=== PATIENT | male | born 1955 | race Caucasian/White ===

== ENCOUNTER 2021-10-23 12:02 | Emergency (ER) | payer MEDICARE, SELFPAY ==
[2021-10-23 12:16] VITALS: BP 154/89; PULSE 89; RESP 16; TEMP 37.1; O2SAT 98
--- NOTE | 2021-10-23 13:06 | ED.SKABFB ---
HPI - Skin/Abscess/Foreign Bdy General Chief complaint: Skin/Abscess/Foreign Body Stated complaint: shingles Time Seen by Provider: 10/23/21 12:35 Source: patient, RN notes reviewed and old records reviewed Mode of arrival: ambulatory Limitations: no limitations History of Present Illness HPI narrative: 66-year-old male who presents to [facility] care with complaints of red blistery rash to the upper abdomen region from anterior right chest to posterior right back that presented itself yesterday. Patient states he was having tingling sensation along that area starting on Friday but no rash till yesterday. Patient states he states a burning type of discomfort. Has not had shingles vaccination MD complaint: other (Shingles) Onset (ago): day(s) (rash 1 day) Severity scale (1-10): 5 Treatments prior to arrival: other (lidocaine and aspirin) Related Data Allergies Allergy/AdvReac Type Severity Reaction Status Date / Time codeine Allergy Headache Verified 10/23/21 12:25 Review of Systems Review of Systems: ONSTITUTIONAL: Denies fever, chills, or sweats. EYES: Denies visual changes, redness, or discharge. ENT: Denies rhinorrhea, congestion, sore throat, or otalgia. CARDIOVASCULAR: Denies chest pain, palpitations, or edema. RESPIRATORY: Denies cough or dyspnea. GASTROINTESTINAL: Denies abdominal pain, nausea, vomiting, or diarrhea. GENITOURINARY: Denies dysuria or hematuria. SKIN: Positive for red rash right upper abdomen radiating to right back with itching and burning sensation grouped. MUSCULOSKELETAL: Denies back pain, joint pain, positive pain along rash on upper abdomen and back NEUROLOGIC: Denies headache, numbness, or weakness. PSYCHIATRIC: Denies anxiety or depression. All systems reviewed & are unremarkable except as noted in HPI and below PMFSH Past Medical History Medical History (Updated 10/26/21 @ 12:37 by Ble Lentz NP) Fracture, clavicle Surgical History Surgical History (Updated 10/23/21 @ 13:16 by Bel Lentz NP) S/P rotator cuff surgery Social History Social History (Updated 10/26/21 @ 12:40 by Bel Lentz NP) Smoking status: Never smoker Alcohol intake: current Alcohol use details: social Substance use: never Living arrangements: with family Gender identity (if verbalized by the patient): Male Comments At time of signature, agree with nursing past medical, surgical, social and family history. There is no relevant family history pertinent to the presenting complaint Exam Narrative: GENERAL: Well-appearing, well-nourished, and in no acute distress. HEAD: Normocephalic, atraumatic. EYES: PERRLA and EOMI. ENT: Nares clear, no rhinorrhea or epistaxis. Mucous membranes moist.TM's ormal with good light reflex, throat pink no lesions or swelling NECK: Supple. no lymphadenopathy CHEST: Clear to auscultation. No respiratory distress.SAO2 98% on room air HEART: Regular rate and rhythm. No murmur heard. Normal peripheral pulses. ABDOMEN: Soft, nontender, nondistended, normal active bowel sounds. EXTREMITIES: Normal range of motion. No edema. SKIN: Warm, dry, red painful rash to right side of upper abdomen radiating to right back NEURO: No focal deficits. Alert and oriented x3. Course Course Level of Care: Express Care Visit Vital Signs Vital signs: Vital Signs Temperature 37.1 C 10/23/21 12:16 Pulse Rate 89 10/23/21 12:16 Respiratory Rate 16 10/23/21 12:16 Blood Pressure 154/89 H 10/23/21 12:16 Pulse Oximetry 98 10/23/21 12:16 Oxygen Delivery Room Air 10/23/21 12:16 Temperature 37.1 C 10/23/21 12:16 Pulse Rate 89 10/23/21 12:16 Respiratory Rate 16 10/23/21 12:16 Blood Pressure 154/89 H 10/23/21 12:16 Pulse Oximetry 98 10/23/21 12:16 Oxygen Delivery Room Air 10/23/21 12:16 MDM - Skin/Abscess/Foreign Bdy Differential Diagnosis Differential diagnosis: Likely abscess of skin or subcutaneous tissue, urticaria, herpes zoste
== END 2021-10-23 13:17 | disposition home or self-care (01) ==
PROVIDERS: Emergency Provider Registered Nurse
DX: B02.9 Zoster without complications (principal)
CPT/HCPCS: 99213; G0463

== ENCOUNTER 2023-04-09 08:16 | Outpatient (CLI) | payer MEDICARE, SELFPAY ==
[2023-04-09 19:17] LABS: Anion Gap 7 mmol/L (8-16); Blood Urea Nitrogen 18 mg/dL (9-20); Calcium 9.7 mg/dL (8.4-10.2); Carbon Dioxide 27 mmol/L (22-30); Chloride 105 mmol/L (98-107); Estimated Glomerular Filt Rate > 60; Glucose 105 mg/dL (65-110); Potassium 4.5 mmol/L (3.4-5.0); Sodium 139 mmol/L (137-145)
[2023-04-09 19:47] LABS: Prostate Specific Antigen 0.5 ng/mL (< OR = 4.0)
== END 2023-04-09 08:17 | disposition home or self-care (01) ==
PROVIDERS: PCP Family Medicine; Visit Provider Nurse Practitioner Adult Health
DX: Z12.5 Encounter for screening for malignant neoplasm of prostate (principal); Z82.49 Family history of ischemic heart disease and other diseases of the circulatory system
CPT/HCPCS: 36415; 80048; 84153; G0103

== ENCOUNTER 2024-08-04 08:06 | Outpatient (CLI) | payer MEDICARE, SELFPAY ==
--- OUTSIDE RECORDS SUMMARY | 2024-08-04 08:13 | XMS_ITS | Referral Summary ---
Author Organization [facility] Address [address] [place] [address] Phone Care Team Providers Care Per Diem Clerk Name Role Phone Berto Negron MD Primary Care Provider [phone] Allergies Active Allergy Reactions Criticality Noted Date Comments Codeine Medications No known medications Active Problems Problem Noted Date Diagnosed Date Encounter for screening colonoscopy 10/10/2021 Overview (10/10/2021): Added automatically from request for surgery [id number] Bilateral hearing loss 05/04/2012 Overview (05/24/2016): Hearing loss in left ear Resolved Problems Problem Noted Date Diagnosed Date Resolved Date Complete tear of rotator cuff 08/21/2010 04/09/2019 Arthralgia of shoulder 07/31/201004/09 Immunizations Immunization Administration Dates Next Due Influenza, Quadrivalent, Spl it, Preservative Free, Intramuscular 04/09/2019,11/20/2016 Influenza, Unspecified 11/17/2020 Pneumococcal Conjugate Pcv20 09/20/2021 Pneumococcal Polysaccharide PPV23 09/14/2020 Social History Tobacco Use Types Packs/Day Years Used Date Smoking Tobacco: Never Smokeless Tobacco: Never Alcohol Use Standard Drinks/Week Comments Yes 0 (1 standard drink = 0.6 oz pur e alcohol) PHQ-2 Answer Date Recorded PHQ-2 Total Score (If total score is 3 or more points, staff should administer the PHQ-9) 0 09/20/2021 Personal Safety Answer Date Recorded Getting School Help Needed Denies 02/15 Sex and Gender Information Value Date Recorded Sex Assigned at Not on file Legal Sex 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 Gender Identity Not on file Sexual Orientation Not on file Last Filed Vital Signs Vital Sign Reading Time Taken Comments Blood Pressure 114/83 03/01/2022 9:13 AM NATIONAL SALES MANAGER Pulse 69 03/01/2022 9:13 AM NATIONAL SALES MANAGER Temperature 36.8 C (98.3 F) 03/01/2022 9:13 AM NATIONAL SALES MANAGER Respiratory Rate 18 03/01/2022 9:13 AM NATIONAL SALES MANAGER Oxygen Saturation 98% 03/01/2022 9:13 AM NATIONAL SALES MANAGER Inhaled Oxygen Concentration - - Weight 76.2 kg (168 lb) 03/01/2022 7:13 AM NATIONAL SALES MANAGER Height 172.7 cm (5' 8) 03/01/2022 7:13 AM NATIONAL SALES MANAGER Body Mass Index 25.54 03/01/2022 7:13 AM NATIONAL SALES MANAGER Plan of Treatment Not on file Procedures Procedure Name Priority Date/Time Associated Diagnosis Comments COLONOSCOPY 03/01/2022 7:14 AM NATIONAL SALES MANAGER HEPATITIS C ANTIBODY Routine 09/18/2020 10:27 AM CDT Need for hepatitis C screening test PSA SCREEN Routine 09/18/2020 10:27 AM CDT Annual physical exam from Last 3 Months or Most Recently Relevant to Health Maintenance Results * COLONOSCOPY (03/01/2022 7:14 AM NATIONAL SALES MANAGER) Anatomical Region Laterality Modality Other Narrative Procedure Note Leonardo Salas MD - 03/01/2022 7:14 AM CST [facility] Patient Name: Tristan Barrera Procedure Date: 03/01/2022 7:14 AM Date of : 1955 Admit Type: Outpatient Age: 66 Gender: Male Attending MD: Leonardo Salas M.D. Room: [facility] ENDOSCOPY ROOM 1 Note Status: Finalized Patient Profile: This is a 66 year old male. No family history ofcolon cancer. Procedure: Colonoscopy Indications: Screening for colorectal malignant neoplasm, Last colonoscopy: November 2011 Referring MD: Sidney Falk M.D. Providers: Leonardo Salas M.D. Impression: - Three 5 to 10 mm polyps in the ascending colon, removed with a cold snare. Resected andretrieved. - Diverticulosis in the sigmoid colon, in the transverse colon and in the ascending colon. - One 5 mm polyp in the sigmoid colon, removed witha cold snare. Resected and retrieved. - Internal hemorrhoids. Recommendation: - Await pathology results. - Repeat colonoscopy in 3 years for screeningpurposes. Medicines: Monitored Anesthesia Care Complications: No immediate complications. Estimated Blood Loss: Estimated blood loss: none. Procedure: Pre-Anesthesia Assessment: - Prior to the procedure, a History and Physicalwas performed, and patient medications and allergieswere reviewed. The patient's tolerance of previous anesthesia was also reviewed. The risks andbenefits of the procedure and the sedation options and risks were discussed with the patient. All questions were answered, and informed consent was obtained. Prior Anticoagulants: The patient has taken noanticoagulant or antiplatelet agents. ASA Grade Assessment: II -A patient with mild systemic disease. After reviewing the risks and benefits, the patient was deemed in satisfactory condition to undergo the procedure. The benefits, risks and alternatives of theprocedure and sedation were discussed and informed consentwas obtained. All questions were answered. Please referto the signed informed consent document in the medical record. The scope was passed under direct vision.The Pediatric Colonoscope PCF-H190L [id number] was introduced through the anus and advanced to the the cecum, identified by appendiceal orifice andileocecal valve. The bowel preparation used was Miralax and bisacodyl tablets via split dose instruction. The quality of the bowel preparation was good. Bowelprep was administered using a split dose. Findings: The perianal and digital rectal examinations were normal. The cecum appeared normal. Three sessile polyps were found in the ascending colon. The polypswere 5 to 10 mm in size. These polyps were removed with a cold snare. Resection and retrieval were complete. Multiple medium-mouthed diverticula were found in the sigmoid colon, transverse colon and ascending colon. A 5 mm polyp was found in the sigmoid colon. The polyp was sessile.The polyp was removed with a cold snare. Resection and retrieval were complete. Internal hemorrhoids were found during retroflexion. The hemorrhoids were medium-sized. Electronically signed by Leonardo Salas M.D. Leonardo Salas M.D. 03/01/2022 8:50:07 AM Number of Addenda: 0 Note Initiated On: 03/01/2022 7:14 AM Procedure Code(s): --- Professional --- 22551, Colonoscopy, flexible; with removal of tumor(s), polyp(s), or other lesion(s) by snare technique Diagnosis Code(s): --- Professional --- Z12.11, Encounter for screening for malignant neoplasm of colon K64.8, Other hemorrhoids D12.2, Benign neoplasm of ascending colon D12.5, Benign neoplasm of sigmoid colon K57.30, Diverticulosis of large intestine without perforation orabscess without bleeding CPT copyright 2020 [employer]. All rights reserved. The codes documented in this report are preliminary and upon inpatient coder reviewmay be revised to meet current compliance requirements. Recognized by the [employer] for promoting quality in endoscopy Leonardo Salas MD ENDOSCOPY PROCEDURES Final Result * PSA screen (09/18/2020 10:27 AM CDT) PSA-Total 0.40 <=5.40 ng/mL [facility] Comment: Interpretive Data AGE SEX REFERENCE INTERVAL 0 minutes-150 years Female None 0 minutes-49 years Male None 50-59 years Male 0-3.90 60-69 years Male 0-5.40 70-79 years Male 0-6.20 80-150 years Male 0-6.20 Current interpretive data last revised 2018. Testing performed by: [address], [address] Blood specimen (specimen) 09/18/2020 10:27 AM CDT 09/18/2020 2:28 PM CDT Sidney Falk MD LAB BLOOD ORDERABLES Final Result [facility] ([place] 1 [facility] Department [place] [address] * Hepatitis C antibody (09/18/2020 10:27 AM CDT) Hep C Ab Nonreactive Nonreactive [facility] Comment: Interpretive Data Nonreactive: Antibodies to HCV not detected. Does NOT exclude the possibility of recent exposure to HCV. Equivocal: Equivocal for HCV antibodies. Supplemental molecular testing will be automatically performed to determine infection status in accordance with current CDC screening recommendations. Reactive: Positive for HCV antibodies. This may represent current or past HCV infection. Supplemental molecular testing will be automatically performed to determine current infection status in accordance with current CDC screening recommendations. Interpretive data was last revised on 2019. Testing performed by: [address] [address] Blood specimen (specimen) 09/18/2020 10:27 AM CDT 09/18/2020 2:28 PM CDT us Sidney Falk MD LAB MICROBIOLOGY - GE NERAL ORDERABLES Final Result [facility] ([place]) 1 [facility] [place] [place] [address] from Last 3 Months or Most Recently Relevant to Health Maintenance Insurance [facility] ADVANTRA [facility] CHOICE PLUS [facility] HMO/PPO Address: [address] [address] [place] [address] AETNA MEDICARE AETNA [facility] ADVANTRA * Guarantor: [facility]-,RESEARCH Account Type Relation to Patient Date of Phone [place] [address] Advance Directives For more information, please contact: [phone] * Full Code (Latest Code Status on File) Date Activated Date Inactivated Comments 03/01/2022 7:16 AM 03/01/2022 1:29 PM * Full Code Date Activated Date Inactivated Comments 03/01/2022 7:16 AM 03/01/2022 7:16 AM Care Teams Per Diem Clerk Relationship Specialty Start Date End Date Berto Negron MD [address] [place] [address] PCP - General Family Practice 04/01/22
--- OUTSIDE RECORDS SUMMARY | 2024-08-04 08:13 | XMS_ITS | Clinical Summary ---
Author Organization [facility] Address [address] [place] [address] Care Team Providers Care Purchasing Coordinator Name Role Phone Unavailable Primary Care Provider Unavailabl e Source Comments [facility],non-owned Affiliates and Associated Physician Practices is amultiple site organization consisting of ambulatory clinics and hospital sitesin [place], [place] and [place]. This disclosure is being madepursuant to the Care Everywhere program and may not contain all information available regarding this patient. Last updated 17.[facility] Allergies No known active allergies Social History Tobacco Use Types Packs/Day Years Used Date Smoking Tobacco: Never Assessed Sex and Gender Information Value Date Recorded Sex Assigned at Not on file Legal Sex Male 6:49 AM CDT Gender Identity Not on file Sexual Orientation Not on file Plan of Treatment Health Maintenance Due Date Last Done Comments COLOGUARD (AGES 45-75) - COL ON CA SCREENING 1955 COLON MONITORING 1955 COLONOSCOPY - COLON CA SCREENING 1955 CT COLONOGRAPHY - COLON CA SCREENING 1955 Colorectal Cancer Screening 1955 FIT - COLON CA SCREENING 1955 FLEX SIG - COLON CA SCREENING 1955 LIPID TESTING 1955 HEPATITIS C SCREENING 04/10/1973 DTAP/TDAP/TD VACCINES (1 - Tdap) 1974 PNEUMOCOCCAL VACCINE 50+ (1 of 1 - PCV) 2005 ZOSTER VACCINE (1 of 2) 2005 COVID-19 VACCINE (1 - 2023-2 5 season) 2023 DEPRESSION SCREENING 02/18/2024 INFLUENZA VACCINE (Season Ended) 2024 Respiratory Syncytial Virus (RSV) Vaccine Pt: or over 60 yrs (1 - 1-dose 75+ series) 2030 HEPATITIS B VACCINE Aged Out No longe r eligible based on patient's age to complete this topic HIB VACCINE Aged Out No longer eligi ble based on patient's age to complete this topic HPV VACCINE Aged Out No longer eligi ble based on patient's age to complete this topic MENINGOCOCCAL (Group B) VACC INE SHARED DECISION-MAKING Aged Out No longer eligibl e based on patient's age to complete this topic MENINGOCOCCAL GROUPS A/C/Y/W VACCINE Aged Out No longer eligible b ased on patient's age to complete this topic
--- OUTSIDE RECORDS SUMMARY | 2024-08-04 08:13 | XMS_ITS | Clinical Summary ---
Author Organization [facility] Address [address] [place] [address] Phone Care Team Providers Care Knit Goods Mender Name Role Phone Berto Negron MD Primary Care Provider [phone] Allergies Active Allergy Reactions Criticality Noted Date Comments Codeine Medications No known medications Active Problems Problem Noted Date Diagnosed Date Encounter for screening colonoscopy 10/10/2021 Overview (10/10/2021): Added automatically from request for surgery [id number] Bilateral hearing loss 05/04/2012 Overview (05/24/2016): Hearing loss in left ear Resolved Problems Problem Noted Date Diagnosed Date Resolved Date Complete tear of rotator cuff 08/21/2010 04/09/2019 Arthralgia of shoulder 07/31/201004/09 Immunizations Immunization Administration Dates Next Due Influenza, Quadrivalent, Spl it, Preservative Free, Intramuscular 04/09/2019,11/20/2016 Influenza, Unspecified 11/17/2020 Pneumococcal Conjugate Pcv20 09/20/2021 Pneumococcal Polysaccharide PPV23 09/14/2020 Surgical History Surgery Date Site/Laterality Comments OTHER SURGICAL HISTORY 02/17/2010 - 02/16/2011 R shoulder injury 2011: Rotator cuff repair ROTATOR CUFF REPAIR 08/13/2010 Right Rotator cuff repair COLONOSCOPY 11/18/2011 - 12/18/2011 Medical History Medical History Date Comments Hx Other Medical R shoulder inju ry 2010 Allergic Headache x 3 months Complete tear of rotator cuff 08/21/2010 Arthralgia of shoulder 07/31/2010 Family History Medical History Relation Name Comments Cancer Father Other Father Alive and well; Coronary artery disease Maternal Grandfather Coronary artery disease; Coronary artery disease Mother Migue nary artery disease; Heart disease Mother Heart disease; Other Mother Alive and well; Other Other 1 No family histo ry of Cancer; Other Other 2 No family histo ry of Stroke; Other Other 3 No family histo ry of Diabetes mellitus; Cancer Other 4 Family history of Cancer; Heart disease Other 5 Family history of Heart disease; Relation Name Status Comments Father Maternal Grandfather Mother Alive Other 1 Other 2 Other 3 Other 4 Other 5 Social History Tobacco Use Types Packs/Day Years [...] on file 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 Gender Identity Not on file Sexual Orientation Not on file Obstetrics History Last Filed Vital Signs Vital Sign Reading Time Taken Comments Blood Pressure 114/83 03/01/2022 9:13 AM WIND TURBINE INSTALLER Pulse 69 03/01/2022 9:13 AM WIND TURBINE INSTALLER Temperature 36.8 C (98.3 F) 03/01/2022 9:13 AM WIND TURBINE INSTALLER Respiratory Rate 18 03/01/2022 9:13 AM WIND TURBINE INSTALLER Oxygen Saturation 98% 03/01/2022 9:13 AM WIND TURBINE INSTALLER Inhaled Oxygen Concentration - - Weight 76.2 kg (168 lb) 03/01/2022 7:13 AM WIND TURBINE INSTALLER Height 172.7 cm (5' 8) 03/01/2022 7:13 AM WIND TURBINE INSTALLER Body Mass Index 25.54 03/01/2022 7:13 AM WIND TURBINE INSTALLER Plan of Treatment Health Maintenance Due Date Last Done Comments DTaP/Tdap/Td Vaccine (1 - Tdap) 1966 Hepatitis B Screening 1973 Zoster Vaccine (1 of 2) 2005 Abdominal Aortic Aneurysm (A AA) Screen 2020 Prostate Cancer Screening-PSA 09/18/2022 09/18/2020, 12/09/2016 Depression Screening 09/20/2022 09/20/2021, 09/14/2020, 04/09/2019, Additional history exists Well Visit 65+ 09/20/2022 09/20/2021, 08/18, 11/20/2016 Fall Risk Assessment 03/01/2023 03/01/2022, 09/20/2021, 09/14/2020, Additional history exists Influenza Vaccine (Season Ended) 2024 11/17/2020, 04/09/2019, 11/20/2016 Colon Cancer Screening-Colonoscopy 03/01/2025 03/01/2022, 12/13/2011, 12/13/2011 Hepatitis C Screening Completed 09/18/2020 Pneumococcal vaccine 65+ Completed 09/20/2021, 08/18 Colon Cancer Screening-CT Colonography Discontinued 03/01/2022, 12/13/2011, 12/13/2011 Colon Cancer Screening-DNA Stool Discontinued 03/01/2022, 12/13/2011, 12/13/2011 Colon Cancer Screening-FIT Discontinued 03/01, 12/13/2011, 12/13/2011 Colon Cancer Screening-Sigmoidoscopy Discontinued 03/01/2022, 12/13/2011, 12/13/2011 Procedures Procedure Name Priority Date/Time Associated Diagnosis Comments COLONOSCOPY 03/01/2022 7:14 AM WIND TURBINE INSTALLER HEPATITIS C ANTIBODY Routine 09/18/2020 10:27 AM CDT Need for hepatitis C screening test PSA SCREEN Routine 09/18/2020 10:27 AM CDT Annual physical exam from Last 3 Months or Most Recently Relevant to Health Maintenance Results * COLONOSCOPY (03/01/2022 7:14 AM WIND TURBINE INSTALLER) Anatomical Region Laterality Modality Other Narrative Procedure Note Leonardo Salas MD - 03/01/2022 7:14 AM CST [facility] Patient Name: Tristan Barrera Procedure Date: 03/01/2022 7:14 AM Date of : 1955 Admit Type: Outpatient Age: 66 Gender: Male Attending MD: Leonardo Salas M.D. Room: [facility] END[facility]COPY ROOM 1 Note Status: Finalized Patient [...] passed under direct vision.The Pediatric Colonoscope PCF-H190L [id number] was introduced through the anus and advanced [...] 7:14 AM Procedure Code(s): --- Professional --- 29193, Colonoscopy, flexible; with removal of tumor(s), polyp(s), or other lesion(s) by snare technique Diagnosis Code(s): --- Professional --- Z12.11, Encounter for screening for malignant neoplasm of colon K64.8, Other hemorrhoids D12.2, Benign neoplasm of ascending colon D12.5, Benign neoplasm of sigmoid colon K57.30, Diverticulosis of large intestine without perforation orabscess without bleeding CPT copyright 2020 [employer]. All rights reserved. The codes documented in this report are preliminary and upon casting room operator reviewmay be revised to meet current compliance requirements. Recognized by the [employer] for promoting quality in endoscopy Leonardo Salas MD ENDOSCOPY PROCEDURES Final Result * PSA screen (09/18/2020 10:27 AM CDT) PSA-Total 0.40 <=5.40 ng/mL [facility] ([place]) Comment: Interpretive Data AGE SEX REFERENCE INTERVAL 0 minutes-150 years Female None 0 minutes-49 years Male None 50-59 years Male 0-3.90 60-69 years Male 0-5.40 70-79 years Male 0-6.20 80-150 years Male 0-6.20 Current interpretive data last revised 2018. Testing performed by: [facility], [address] [place] [address]., [id number] Blood specimen (specimen) 09/18/2020 10:27 AM CDT 09/18/2020 2:28 PM CDT Sidney Falk MD LAB BLOOD ORDERABLES Final Result [facility] ([place]) 1 [facility] [place] [address] * Hepatitis C antibody (09/18/2020 10:27 AM CDT) Hep C Ab Nonreactive Nonreactive [facility] ([place]) Comment: Interpretive Data Nonreactive: Antibodies to HCV [...] last revised on 2019. Testing performed by: [facility], [address] [place] [address], [place]., [address] Blood specimen (specimen) 09/18/2020 10:27 AM CDT 09/18/2020 2:28 PM CDT Sidney Falk MD LAB MICROBIOLOGY - NERKS ORDERABLES Final Result [facility] ([place]) 1 [facility] Department [place] [address] from Last 3 Months or Most Recently Relevant to Health Maintenance Insurance [facility] ADVANTRA [facility] CHOICE PLUS [facility] * Guarantor: [facility]-,RESEARCH Account Type Relation to Patient Date of [place] [address] Advance Directives For more information, please contact: [phone] * Full Code (Latest Code Status on File) Date Activated Date Inactivated Comments 03/01/2022 7:16 AM 03/01/2022 1:29 PM * Full Code Date Activated Date Inactivated Comments 03/01/2022 7:16 AM 03/01/2022 7:16 AM Care Teams Knit Goods Mender Relationship Specialty Start Date End Date Berto Negron MD [address] [place] [address] PCP - General Family Practice 04/01/22
[2024-08-04 19:10] LABS: Alanine Aminotransferase 30 U/L (6-50); Albumin Level 4.4 g/dL (3.5-5.1); Alkaline Phosphatase 70 U/L (38-126); Anion Gap 6 mmol/L (4-12); Aspartate Amino Transferase 71 U/L (17-59); Bilirubin,Total 0.9 mg/dL (0.2-1.3); Blood Urea Nitrogen 19 mg/dL (9-20); Calcium 9.2 mg/dL (8.4-10.2); Carbon Dioxide 27 mmol/L (22-30); Chloride 104 mmol/L (98-107); Estimated Glomerular Filt Rate > 60; Glucose 103 mg/dL (65-110); Potassium 4.5 mmol/L (3.4-5.0); Sodium 137 mmol/L (137-145); Total Protein 7.6 g/dL (6.3-8.2)
[2024-08-04 19:38] LABS: Prostate Specific Antigen 0.5 ng/mL (< OR = 4.0)
== END 2024-08-04 08:07 | disposition home or self-care (01) ==
PROVIDERS: PCP Nurse Practitioner Adult Health; Visit Provider Nurse Practitioner Adult Health
DX: Z12.5 Encounter for screening for malignant neoplasm of prostate (principal); Z82.49 Family history of ischemic heart disease and other diseases of the circulatory system
CPT/HCPCS: 36415; 80053; 84153; G0103

== ENCOUNTER 2024-10-31 02:00 | Emergency (ER) | payer MEDICARE, SELFPAY ==
[2024-10-31] VITALS (18 sets, daily range): BP systolic 130–145; BP diastolic 80–105; PULSE 59–91; RESP 14–25; TEMP 36.5–36.6; O2SAT 92–100
--- NOTE | ~2024-10-31 | CT_ITS ---
Tristan Barrera Jr. EXAMINATION: CT abdomen pelvis w con COMPARISON: None HISTORY: RLQ pain TECHNIQUE: Axial images were obtained through the abdomen, pelvis post administration of IV contrast. Oral contrast was also administered. Coronal reconstruction images were obtained from the axial views. CT scan performed using dose optimization techniques including the following automated exposure control; adjustment of mA and/or kV; use of iterative reconstruction technique. Automatic exposure control was used to reduce radiation dose. Permanent radiation dose record is archived to PACS. FINDINGS: CT abdomen: LUNG BASES: The lung bases are clear. The visualized portions of the heart and pericardium are unremarkable. LIVER: Within the liver there are simple and complex appearing liver cysts largest right lobe liver 1 x 1 cm. Portal vein patent. No intrahepatic biliary duct dilatation. SPLEEN: Unremarkable. KIDNEYS: Right Kidney: Stranding noted surrounding the right kidney with hydronephrosis and hydroureter due to an obstructing proximal 2 x 3 x 2 mm calculus. Left Kidney: Unremarkable. No calculi. No hydronephrosis ADRENAL GLANDS: Unremarkable. PANCREAS: Unremarkable. GALLBLADDER/BILIARY: Unremarkable. No biliary dilatation. STOMACH AND ESOPHAGUS: Visualized stomach and esophagus within normal limits. BOWEL/MESENTERY: Moderate fecal content, no colitis or diverticulitis. Appendix normal. Mesentery normal. Small bowel normal. ADENOPATHY/RETROPERITONEUM: No lymphadenopathy. AORTA/VASCULATURE: Normal caliber aorta. FREE FLUID OR FREE AIR: No free fluid.. CT pelvis: SOLID ORGANS/REPRODUCTIVE: Prostate enlargement, correlate with PSA. BLADDER: Within normal limits. OSSEOUS STRUCTURES: No acute osseous abnormality.No suspicious lesions. OVERLYING SOFT TISSUES: Unremarkable. IMPRESSION: 1. Right-sided obstructive uropathy Reviewed, dictated and finalized at location A.
--- OUTSIDE RECORDS SUMMARY | 2024-10-31 02:01 | XMS_ITS | Clinical Summary ---
Author Organization [facility] Address [address] [place] [address] Care Team Providers Care Zipper Ironer Name Role Phone Unavailable Primary Care Provider Unavailabl e Source Comments [facility],non-owned Affiliates and Associated Physician Practices is amultiple site organization consisting of ambulatory clinics and hospital sitesin [place], [place], [place] and [place]. This disclosure is being madepursuant to the Care Everywhere program and may not contain all information available regarding this patient. Last updated 17.[facility] Allergies No known active allergies Social History [...] 2005 ZOSTER VACCINE (1 of 2) 2005 DEPRESSION SCREENING 02/18/2024 COVID-19 VACCINE (1 - 2023-2 5 season) 2024 INFLUENZA VACCINE (#1) 2024 Respiratory Syncytial Virus (RSV) Vaccine Pt: [...]
[2024-10-31 02:14] LABS: Hematocrit 43.6 % (42.0-52.0); Hemoglobin 15.8 g/dL (14.0-18.0); Immature Granulocyte Percent A 0.3 % (0-0.5); Lymphocytes Absolute Auto 3.06 K/mm3 (0.9-3.2); Mean Corpuscular HGB Conc 36.2 g/dl (32-36); Mean Corpuscular Hemoglobin 30.2 pg (26-34); Mean Corpuscular Volume 83.4 fl (80-100); Nucleated Red Blood Cells Absolute Auto 0.000 K/mm3 (0.0-0.012); Nucleated Red Blood Cells Perc 0.0 % (0.0-0.2); Platelet Count Result 217 k/mm3 (150-375); Red Blood Count 5.23 M/mm3 (4.6-6.20); White Blood Count 13.9 K/mm3 (4.5-10.0)
--- NOTE | 2024-10-31 02:18 | PC.NURSE ---
Patient in triage getting blood drawn and patient states he feels like he is going to pass out. Patient sitting in w/c and given cool wash cloth. Patient pale and diaphoretic, ballet master/mistress called and instructed to take patient to room 3. Patient taken to room 3 via w/c and placed on monitor.
[2024-10-31 02:35] LABS: Alanine Aminotransferase 34 U/L (6-50); Albumin Level 4.5 g/dL (3.5-5.1); Alkaline Phosphatase 79 U/L (38-126); Anion Gap 9 mmol/L (4-12); Aspartate Amino Transferase 54 U/L (17-59); Bilirubin,Total 0.9 mg/dL (0.2-1.3); Blood Urea Nitrogen 18 mg/dL (9-20); Calcium 9.3 mg/dL (8.4-10.2); Carbon Dioxide 26 mmol/L (22-30); Chloride 104 mmol/L (98-107); Estimated CRCL calculation 54 ml/min; Estimated Glomerular Filt Rate > 60; Glucose 141 mg/dL (65-110); Lipase 106 U/L (23-300); Potassium 3.2 mmol/L (3.4-5.0); Sodium 139 mmol/L (137-145); Total Protein 7.1 g/dL (6.3-8.2)
[2024-10-31 03:13] LABS: Add Urine Microscopic? YES; Appearance Urine Turbid (Clear); Glucose Urine UA Negative (Negative); Leukocyte Esterase Ur Negative LEU/UL (Negative); Nitrate Urine Negative (Negative); Non Pathogenic Casts 0-2; Specific Grav Ur 1.015 (1.001-1.035)
--- NOTE | 2024-10-31 04:44 | ED.ABDPAIN ---
HPI - Abdominal Pain General Chief Complaint: Abdominal Pain Stated Complaint: RLQ abd pain Time Seen by Provider: 10/31/24 04:39 History of Present Illness HPI narrative: Patient is a 69-year-old male who presents to the emergency department this evening complaining of right lower quadrant pain radiating to his right approximately 1 hour prior to arrival. Patient does appear uncomfortable, denies any history of kidney stones, denies any urinary symptoms including dysuria or hematuria and denies any recent illness, fevers or chills. No additional symptoms or concerns at this time. Related Data Allergies Allergy/AdvReac Type Severity Reaction Status Date / Time codeine Allergy Headache Verified 10/31/24 02:08 Review of Systems Review of Systems: All systems are reviewed and are negative unless stated otherwise in the HPI. [facility] Past Medical History Medical History Fracture, clavicle Surgical History Surgical History S/P rotator cuff surgery Family History Family History Father Cancer Mother Heart disease Social History Social History Smoking status: Never smoker Alcohol intake: current Alcohol use details: social Beer Substance use: never Substance use type: does not use Lack of Transportation: No Lack of Food: Never True Current Housing: I Have Housing Concerned About Future Housing: No Difficulty Paying Gas/Electric Bills: No Difficulty Paying for Meds: No Currently Unemployed: No Education: High School Diploma/GED Difficulty w/ Childcare or Family Care: No Living arrangements: with family Occupation/Education: retired Gender identity (if verbalized by the patient): Male Sexual Orientation (if Verbalized by the Patient): Straight or Heterosexual Agree to blood products: Yes Exam Narrative: General: Alert, awake, afebrile, in moderate distress secondary to pain. HEENT: PERRL, no rhinorrhea, no post nasal drip, oropharynx clear. Neck: Trachea midline, no JVD, no lymphadenopathy. Cardiovascular: Regular rate and rhythm, no murmurs, rubs or gallops, no peripheral edema. Respiratory: Clear to auscultation bilaterally, no tachypnea, no wheezing, no rhonchi, no rubs, no respiratory distress. Abdomen: Soft, nontender, nondistended, no rebound, no guarding, no peritoneal signs. Musculoskeletal: No joint swelling or deformity, normal muscle tone. Skin: No rashes or petechia, no signs of infection. Psychiatric: Alert and oriented, normal behavior and judgment for situation. Neurological: Alert and oriented to person, place, and time. Follows all commands. No focal deficits, speech is clear and fluent. Course Vital Signs Vital signs: Vital Signs Temperature 97.9 F 10/31/24 02:04 Pulse Rate 64 10/31/24 02:04 Respiratory Rate 20 10/31/24 02:04 Blood Pressure 135/80 10/31/24 02:04 Pulse Oximetry 98 10/31/24 02:04 Oxygen Delivery Room Air 10/31/24 02:04 Temperature 97.9 F 10/31/24 02:04 Pulse Rate 64 10/31/24 02:04 Respiratory Rate 20 10/31/24 02:04 Blood Pressure 135/80 10/31/24 02:04 Pulse Oximetry 98 10/31/24 02:04 Oxygen Delivery Room Air 10/31/24 02:04 MDM - Abdominal Pain MDM Narrative Medical decision making narrative: The patient was evaluated by myself in the emergency department. History is obtained from patient who is an independent historian and physical exam was performed. External medical records were reviewed at this time. IV was established and pertinent tests were ordered. Patient was administered 4 mg IV Zofran for nausea and 15 mg of IV Toradol for pain. Laboratory results obtained revealing leukocytosis of 13.9, potassium 3.2 otherwise unremarkable. Patient was administered 40 mEq of oral potassium after CT scan was obtained. Urinalysis revealed hematuria otherwise unremarkable. Imaging studies obtained included CT abdomen pelvis with IV contrast which was independently interpreted by me revealing proximal hydroureter with a 4 mm proximal right ureteral stone, which is pending final radiology interpretation. Differential diagnosis considerations include kidney stones, appendicitis, pyelonephritis. Comorbidities impacting this visit include none. I have evaluated and discussed social determinants of health with the patient that could potentially impact subsequent diagnosis and treatment plans. On repeat assessment of the patient, reevaluation revealed that the patient is doing well and is in no acute distress. Patient symptoms have improved since he arrived to our emergency department. Repeat vital signs were all reviewed and noted to be stable. Differential diagnosis and treatment plan were discussed with the patient at bedside. Patient agrees with discussion and after shared medical decision making agrees with discharge. All questions were answered to the patient's satisfaction. Patient will follow up with Urology in 3-5 days. Script for ibuprofen, [place], Flomax and Zofran were sent to patient's pharmacy to take as prescribed to help pass his kidney stone. Patient was provided with strict return precautions and instructed to return to the emergency department if any new or worsening symptoms develop. The patient was discharged in stable condition. Lab Data 10/31/24 02:09 10/31/24 02:09 Labs: Lab Results 10/31/24 10/31/24 Range/Units 02:09 03:02 WBC 13.9 H (4.5-10.0) K/mm3 RBC 5.23 (4.6-6.20) M/mm3 Hgb 15.8 (14.0-18.0) g/dL Hct 43.6 (42.0-52.0) % MCV 83.4 (80-100) fl MCH 30.2 (26-34) pg MCHC 36.2 H (32-36) g/dl RDW 12.2 (11.5-14.5) % Plt Count 217 (150-375) k/mm3 MPV 9.8 (7.4-10.4) fl Immature Gran % (Auto) 0.3 (0-0.5) % Neut % (Auto) 68.9 (45.5-73.1) % Lymph % (Auto) 22.0 (18.3-44.2) % [place] % (Auto) 7.4 (2.6-8.5) % Eos % (Auto) 0.9 (0-4.4) % Baso % (Auto) 0.5 (0.2-1.2) % Lymph # (Auto) 3.06 (0.9-3.2) K/mm3 [place] # (Auto) 1.0 H (0.1-0.6) K/mm3 Eos # (Auto) 0.1 (0-0.3) K/mm3 Baso # (Auto) 0.1 (0.0-0.1) K/mm3 Abs Immat Gran (auto) 0.04 H (0.00-0.031) K/mm3 Absolute Neuts (auto) 9.6 H (1.3-6.7) K/mm3 Absolute Nucleated RBC 0.000 (0.0-0.012) K/mm3 Nucleated RBC % 0.0 (0.0-0.2) % Sodium 139 (137-145) mmol/L Potassium 3.2 L (3.4-5.0) mmol/L Chloride 104 (98-107) mmol/L Carbon Dioxide 26 (22-30) mmol/L Anion Gap 9 (4-12) mmol/L BUN 18 (9-20) mg/dL Creatinine 1.12 (0.7-1.3) mg/dL Estim Creat Clear Calc 54 ml/min Estimated GFR > 60 (59 - ) Glucose 141 H (65-110) mg/dL Calcium 9.3 (8.4-10.2) mg/dL Total Bilirubin 0.9 (0.2-1.3) mg/dL AST 54 (17-59) U/L ALT 34 (6-50) U/L Alkaline Phosphatase 79 (38-126) U/L Total Protein 7.1 (6.3-8.2) g/dL Albumin 4.5 (3.5-5.1) g/dL Lipase 106 (23-300) U/L Urine Color Yellow (Yellow) Urine Appearance Turbid H (Clear) Urine pH 7.5 (5.0-9.0) Ur Specific [place] 1.015 (1.001-1.035) Urine Protein Negative (Negative) mg/dL Urine Glucose (UA) Negative (Negative) mg/dL Urine Ketones Negative (Negative) mg/dL Ur Blood (Man) 2+ H (Negative) Urine Nitrate Negative (Negative) Urine Bilirubin Negative (Negative) Urine Urobilinogen 1.0 (<2.0) mg/dL Leukocyte Esterase Rfl Negative (Negative) SHANIQUE/UL Urine RBC >100 H (0-2) /hpf Urine WBC 0-5 (0-3) /hpf Ur Squamous Epith Cells None seen (Few) /hpf Urine Bacteria None seen /hpf Urine Casts 0-2 Discharge Plan Discharge Clinical Impression: Acute right flank pain, Kidney stone on right side, Hematuria, Hypokalemia Patient Disposition: Home Condition: Improved Instructions: Antibiotic Form, Kidney Stones (ED) Additional Instructions: Please follow-up with urologist your provided with within the next 3-5 days. Return to the emergency department if any new or worsening symptoms develop. Use the prescribed medications as instructed to help pass the kidney stone. Patient Language: Andorran Prescriptions: New hydrocodone-acetaminophen 5-325 mg tablet 1 tablet PO Q8H PRN (Reason: pain) Qty: 10 0RF ondansetron 4 mg tablet,disintegrating 4 mg PO Q8H PRN (Reason: nausea and vomiting) Qty: 14 0RF tamsulosin [Flomax] 0.4 mg capsule 0.4 mg PO DAILY Qty: 14 0RF ibuprofen 400 mg tablet 400 mg PO TID PRN (Reason: pain) Qty: 20 0RF Follow-up/Referrals: Tristan Mast MD [Physician, Urology] - 3 Days Ciara Klein APRN [Primary Care Provider, Family Practice] Time of Disposition: 04:51
[2024-10-31] MEDS: KETOROLAC 15 MG/ML VIAL (*BKC) IV PUSH (04:54)
[2024-10-31] MEDS: POTASSIUM CHLORIDE 20 MEQ PACKET (FOR LIQUID) 40 MEQ PO (04:55)
[2024-10-31] MEDS: ONDANSETRON INJ 4 MG/2 ML VIAL IV PUSH (04:55)
== END 2024-10-31 05:30 | disposition home or self-care (01) ==
LOC: ANHED 05:12
PROVIDERS: Emergency Provider Emergency Medicine; PCP Nurse Practitioner Adult Health
DX: N20.0 Calculus of kidney (principal); E87.6 Hypokalemia
CPT/HCPCS: 36415; 74177; 80053; 81001; 83690; 85025; 96374; 96375; 99284; A9270; J1885; J2405; Q9967